=== PATIENT | female | born 1995 | race African-American/Black ===

== ENCOUNTER 2020-10-14 15:58 | Emergency (ER) | payer OTHER, SELFPAY ==
[2020-10-14] MEDS ORDERED: Ondansetron ODT 4 MG TAB ONE (16:35)
[2020-10-14] MEDS ORDERED: Morphine 4 MG/ML VIAL ONE (16:55)
[2020-10-14 16:57] LABS: #Eosinphils 0.2 thou/uL (0.0-0.7); #Lymphocytes 1.1 thou/uL (1.20-3.40); #Monocytes 0.6 thou/uL (0.11-0.59); %Basophils 0.1 % (0.0-1.0); %Eosinophils 1.3 % (0.0-10.0); %Lymphocytes 8.8 % (21.0-51.0); %Monocytes 4.4 % (0.0-10.0); %Neutrophils 85.4 % (42.0-75.0); Mean Corpuscular HGB CONC 32.3 g/dL (32.0-36.0); Mean Corpuscular Hemoglobin 29.1 pg (27.0-31.0); Mean Platelet Volume 6.4 fL (7.4-10.4); Platelet Count 364 thou/uL (130-400); RBC Distribution Width 12.7 % (11.5-14.5); Red Blood Cell (RBC) Count 4.47 mill/uL (4.20-5.40); White Blood Cell (WBC) Count 12.9 thou/uL (4.8-10.8)
[2020-10-14 16:58] LABS: Bacteria/HPF None Seen HPF (None Seen); Bilirubin Negative (Negative); Blood, Urine Negative (Negative); Clarity Clear (Clear); Glucose, Urine (Dipstick) Normal (Negative); Ketone, Urine Negative (Negative); Leukocyte Negative Leu/uL (Negative); Nitrite Negative (Negative); Protein, Urine (Dipstick) 30 mg/dL (Neg-Trace); Specific Gravity, Urine 1.027 (1.002-1.036); WBC/HPF 0-3 HPF (0-3); pH, Urine 7.5 (5.0-9.0)
[2020-10-14 17:21] LABS: ALT (SGPT) 90 U/L (8-55); AST (SGOT) 211 U/L (5-34); Albumin 3.9 g/dL (3.5-5.0); Alkaline Phosphatase 140 U/L (40-110); Anion Gap 12 mmol/L (10-20); BUN (Urea Nitrogen) 12 mg/dL (7.0-18.7); Calc. Creatinine Clearance 0 mL/min (70-130); Calcium 9.1 mg/dL (7.8-10.44); Carbon Dioxide 25 mmol/L (22-29); Chloride 104 mmol/L (98-107); Globulin 3.5 g/dL (2.4-3.5); Glucose 78 mg/dL (70-105); Potassium 3.9 mmol/L (3.5-5.1); Protein, Total 7.4 g/dL (6.0-8.3); Sodium 137 mmol/L (136-145)
[2020-10-14 17:34] LABS: Lipase 3138 U/L (8-78)
[2020-10-14 17:45] LABS: BHCG - Serum Negative (NEGATIVE); Pregs Control Background? CLEAR/WHITE (CLR/WHITE); Pregs Control Bar Appear? YES (CONTROL BAR)
[2020-10-14 19:07] LABS: SARS-CoV-2 NAA Rapid Test Not Detected (NotDetected)
== END 2020-10-14 19:04 | disposition left against medical advice (07) ==
LOC: ERS 15:58
DX: K85.90 Acute pancreatitis without necrosis or infection, unspecified (principal); K80.70 Calculus of gallbladder and bile duct without cholecystitis without obstruction; R11.2 Nausea with vomiting, unspecified; Z20.822 Contact with and (suspected) exposure to COVID-19
CPT/HCPCS: 0240U; 36415; 76705; 80053; 81003; 81015; 83690; 84703; 85025; 94760; 96361; 96374; J2270; Q0162

== ENCOUNTER 2023-09-11 20:24 | Inpatient (IN) | payer SELFPAY, OTHER ==
[2023-09-11] MEDS ORDERED: Ipratropium/Albuterol 3 ML NEB NEB PRN (22:16)
[2023-09-11] MEDS ORDERED: Ondansetron PF 4 MG/2 ML Vial IVP PRN (22:16)
[2023-09-11] MEDS ORDERED: hydrALAZINE 20 MG/ML VIAL SLOW IVP PRN (22:16)
[2023-09-11 22:40] LABS: Acetaminophen Less than 10 mcg/mL (10.0-30.0); Alcohol 199.5 mg/dL (Less than 10); Salicylate Less than 8.0 mg/dL (15.0-30.0)
[2023-09-11] MEDS ORDERED: Cyclobenzaprine 10 MG TAB PO PRN (22:44)
[2023-09-11 23:49] VITALS: BMI 45.1
[2023-09-11] MEDS: Morphine 2 MG/ML VIAL SLOW IVP PRN (23:51)
[2023-09-11] MEDS: Sodium Chloride 0.9% 1,000 ML IV SCH (23:53)
[2023-09-12] MEDS: traMADol HCl 50 MG TAB PO SCH (01:03)
[2023-09-12] MEDS: Acetaminophen 500 MG TAB PO SCH (01:03)
[2023-09-12 06:03] LABS: Bacteria/HPF None Seen HPF (None Seen); Squamous Epithelial 0-3 HPF (0-3)
[2023-09-12 06:33] LABS: Amphetamine Not Detected (NotDetected); Barbiturates Screen Not Detected (NotDetected); Benzodiazepine Screen Not Detected (NotDetected); Cocaine Metabolite Screen Not Detected (NotDetected); Methadone Not Detected (NotDetected); Methamphetamine Not Detected (NotDetected); Opiate Screen Detected (NotDetected); Oxycodone Screen Not Detected (NotDetected); Phencyclidine (PCP) Not Detected (NotDetected); THC/Cannabinoid Screen Not Detected (NotDetected); Tricyclic Screen Not Detected (NotDetected)
[2023-09-12 08:54] LABS: #Monocytes 0.5 thou/uL (0.11-0.59); %Basophils 0.3 % (0.0-1.0); %Eosinophils 0.1 % (0.0-10.0); %Lymphocytes 16.7 % (21.0-51.0); %Monocytes 6.3 % (0.0-10.0); Hemoglobin 10.9 g/dL (12.0-16.0); Mean Corpuscular Hemoglobin 29.6 pg (27.0-31.0); Mean Corpuscular Volume 89.7 fl (78.0-98.0); Platelet Count 328 10x3/uL (130-400); RBC Distribution Width 14.6 % (11.5-14.5); Red Blood Cell (RBC) Count 3.68 mill/uL (4.20-5.40); White Blood Cell (WBC) Count 7.8 10x3/uL (4.8-10.8)
[2023-09-12 09:11] LABS: INR-International Normal Ratio 1.2; PTT 30.1 sec (22.9-36.1); Prothrombin Time 14.7 sec (12.0-14.7)
[2023-09-12 09:16] LABS: Anion Gap 16 mmol/L (10-20); BUN (Urea Nitrogen) 6 mg/dL (7.0-18.7); Calc. Creatinine Clearance 197 mL/min (70-130); Calcium 7.6 mg/dL (7.8-10.44); Carbon Dioxide 17 mmol/L (22-29); Chloride 111 mmol/L (98-107); Estimated GFR 114; Glucose 84 mg/dL (70-105); Potassium 3.7 mmol/L (3.5-5.1); Sodium 140 mmol/L (136-145)
[2023-09-12] MEDS: Gabapentin 100 MG CAP PO SCH (09:39)
[2023-09-12] MEDS ORDERED: Cyclobenzaprine 10 MG TAB PO PRN (09:40)
[2023-09-12] MEDS: Famotidine/PF 20 mg/2ml Vial SLOW IVP SCH (09:40)
[2023-09-12] MEDS: traMADol HCl 50 MG TAB PO PRN (10:02)
[2023-09-13 05:53] VITALS: TEMP 98
[2023-09-13 13:33] VITALS: BP 109/76
== END 2023-09-13 13:15 | disposition home or self-care (01) | DRG 552 ==
LOC: ERS 20:24 → SJJU 22:16 → OBSVTOIN 09-12 15:04
PROVIDERS: ADMIT Specialist; ATTEND Specialist
DX: S32.039A Unspecified fracture of third lumbar vertebra, initial encounter for closed fracture (principal); S06.0X9A Concussion with loss of consciousness of unspecified duration, initial encounter; V49.9XXA Car occupant (driver) (passenger) injured in unspecified traffic accident, initial encounter; G89.11 Acute pain due to trauma; R40.2412 Glasgow coma scale score 13-15, at arrival to emergency department
CPT/HCPCS: 36415; 80048; 80306; 80307; 81015; 85025; 85610; 85730; 96375; 96376; G0378; G0390; J2272; J7050; S0028